=== PATIENT | female | born 1955 | race Two or more races ===

== ENCOUNTER 2018-06-21 10:44 | Emergency (ER) | payer OTHER ==
[~2018-06-21] VITALS: Ht 165.1 cm; Wt 565.2 kg
[~2018-06-21 10:44] MED LIST: ASA325 M1; EXFORGE 5-160 M1 TAB; TRILEPTAL600 MG; ULTRACET PO; VYTORIN 10/10 T1 TAB
[2018-06-21] MEDS ORDERED: PLAVIX75 MG (11:19)
[2018-06-21] MEDS ORDERED: EVISTA60 MG (11:20)
[2018-06-21] MEDS ORDERED: OSEL75CA PO (16:13)
[2018-06-21] MEDS ORDERED: TUSSI PRES-B L120 M1 PO (16:13)
[2018-06-21] MEDS ORDERED: INTESTINEX680 M1 PO (16:16)
== END 2018-06-21 17:28 | disposition home or self-care (01) ==
LOC: ER 10:44
DX: A08.8 Other specified intestinal infections (principal)

== ENCOUNTER 2018-11-18 11:36 | Outpatient (CLI) | payer OTHER ==
[~2018-11-18 11:36] MED LIST changes: +EVISTA60 MG; +INTESTINEX680 M1 PO; +OSEL75CA PO; +PLAVIX75 MG; +TUSSI PRES-B L120 M1 PO
== END 2018-11-18 11:44 | disposition home or self-care (01) ==
LOC: RAD 501 11:36
DX: M54.6 Pain in thoracic spine (principal); M54.5 Low back pain

== ENCOUNTER 2018-12-30 09:21 | Emergency (ER) | payer OTHER ==
[~2018-12-30] VITALS: Ht 167.6 cm; Wt 109.8 kg
[2018-12-30] MEDS ORDERED: LOTREL 5-10 MG1 CAP (10:09)
[2018-12-30] MEDS ORDERED: KETO10TA2 PO (14:47)
[2018-12-30] MEDS ORDERED: RELPAX20 MG PO (14:47)
== END 2018-12-30 14:57 | disposition home or self-care (01) ==
LOC: ER 09:21
DX: G43.909 Migraine, unspecified, not intractable, without status migrainosus (principal)

== ENCOUNTER 2020-03-07 14:33 | Emergency (ER) | payer OTHER ==
[~2020-03-07] VITALS: Ht 167.6 cm; Wt 104.3 kg
[~2020-03-07 14:33] MED LIST changes: +KETO10TA2 PO; +LOTREL 5-10 MG1 CAP; +RELPAX20 MG PO
[2020-03-07] MEDS ORDERED: VITAMIN D31250 MCG PO (14:44)
[2020-03-07] MEDS ORDERED: CLOPIDOGREL BIS75 MG PO (14:44)
[2020-03-07] MEDS ORDERED: VYTORIN 10-201 EACH PO (14:45)
[2020-03-07] MEDS ORDERED: RALOXIFENE HCL60 MG PO (14:45)
[2020-03-07] MEDS ORDERED: AMLODIPINE-BEN1 EAC2 PO (14:45)
[2020-03-07] MEDS ORDERED: LORAZEPAM0.5 MG PO (14:45)
[2020-03-07] MEDS ORDERED: BUPROPION HCL150 M1 PO (14:45)
== END 2020-03-07 17:44 | disposition home or self-care (01) ==
LOC: ER 14:33
DX: G89.11 Acute pain due to trauma (principal); M25.512 Pain in left shoulder

== ENCOUNTER 2020-03-26 12:36 | Outpatient (CLI) | payer OTHER ==
[~2020-03-26 12:36] MED LIST changes: +AMLODIPINE-BEN1 EAC2 PO; +BUPROPION HCL150 M1 PO; +CLOPIDOGREL BIS75 MG PO; +LORAZEPAM0.5 MG PO; +RALOXIFENE HCL60 MG PO; +VITAMIN D31250 MCG PO; +VYTORIN 10-201 EACH PO
== END 2020-03-26 12:53 | disposition home or self-care (01) ==
LOC: MRI 12:36
PROVIDERS: ATTEND Orthopaedic Surgery
DX: M25.512 Pain in left shoulder (principal)
CPT/HCPCS: 73218

== ENCOUNTER 2020-04-10 10:51 | Outpatient (CLI) | payer OTHER | END 2020-04-10 11:06 | disposition home or self-care (01) | LOC: RAD 10:51 | PROVIDERS: ATTEND Orthopaedic Surgery | DX: R07.89 Other chest pain (principal) ==

== ENCOUNTER 2025-01-18 14:43 | Inpatient (IN) | payer OTHER ==
[~2025-01-18] VITALS: Ht 165.1 cm; Wt 106.6 kg
[2025-01-18] MEDS ORDERED: SYNTHROID50 MCG PO (15:37)
--- NOTE | 2025-01-18 15:40 | NUR ---
SE RECIBE PTE ALERTA, ORIENTADA X3 Y AMBULANDO. PTE REFIERE TOS SECA Y ASMA HACE DOS ORO, REFIERE DOLOR DE PECHO Y SE REALIZA EKG EL CUAL SE PRESENTA A DR. MARSHALL E INDICA UBICAR EN AU. SE MIDEN S/V Y SE UBICA.
[2025-01-18] MEDS ORDERED: IPRATROPIUM BROMIDE 0.5 MG/2.5 ML AMPUL.NEB IH SCH ×2 (16:15→21:25)
[2025-01-18] MEDS ORDERED: GUAIFENESIN/DEXTROMETHORPHAN 100MG/10ML BLIST.PACK PO ONE (16:15)
[2025-01-18] MEDS ORDERED: METHYLPREDNISOLONE SOD SUCC 125 MG VIAL IV ONE (16:15)
[2025-01-18] MEDS ORDERED: 0.9 % SODIUM CHLORIDE 500 ML IV ONE (16:15)
[2025-01-18] MEDS ORDERED: LEVALBUTEROL HCL 1.25 MG/3 ML SOLUTION IH SCH ×2 (16:15→21:25)
[2025-01-18 16:49] LABS: BASO % 0.5 % (0.1-1.2); EOS # 0.36 (0.04-0.54); EOS % 2.7 % (0.7-7.0); LYMPH # 3.00 (1.18-3.74); LYMPH % 22.7 % (19.3-53.1); MEAN PLATELET VOLUME 10.30 fl (9.4-12.4); MONO # 1.24 (0.24-0.82); MONO % 9.4 % (4.7-12.5); NEUT # 8.47 (1.56-6.13); NEUT % 63.9 % (34.0-71.1); RED CELL DISTRIBUTION WIDTH 14.2 % (11.6-14.4)
--- NOTE | 2025-01-18 16:58 | NUR ---
SE EDUCA A PTE SOBRE TX MEDICO, SE DEZ MUESTRAS DE LABORATORIO UTILIZANDO MEDIDAS ASEPTICAS. SE COLOCA H/L ANDREA DE EDEMA. SE ADMINISTRAN MEDICAMENTOS DANA ORDEN MEDICA. SE NOTIFICAN RX Y ABGS/TERAPIAS PENDIENTES.
[2025-01-18 17:03] LABS: INR 1.01
[2025-01-18 17:10] LABS: GLUCOSE FASTING 118.0 mg/dL (65-100); OSMOLALITY SERUM 283.0 MOSM/KG (275-295)
[2025-01-18 17:10] LABS: URINE APPEARANCE Clear; URINE BILIRRUBIN Negative (NEGATIVE); URINE BLOOD Negative; URINE COLOR Dark Yellow; URINE GLUCOSE Negative (NEGATIVE); URINE KETONE Trace (NEGATIVE); URINE LEUKOCYTE Trace; URINE NITRATE Negative; URINE PROTEIN Trace (NEGATIVE); URINE UROBILINOGEN 1.0 E.U./dl
[2025-01-18 17:14] LABS: ALT/SGPT 32.0 U/L (12-78); AST/SGOT 27.0 U/L (15-37); BILIRUBIN TOTAL 0.17 mg/dL (0.3-1.2); BUN CREA RATIO 19.0 (7.0-25.0); CREATININE SERUM 0.77 mg/dL (0.55-1.02); GFR 74.55; GLOBULINA 4.4 G/DL (2.4-3.5)
[2025-01-18 17:14] LABS: URINE BACTERIA 45.5 uL (0.0-1933); URINE EPITHELIAL CELLS 8.1 uL (0.0-38.8); URINE RBC 11.5 uL (0.0-20.8); URINE WBC 4.9 uL (0.0-23.2)
[2025-01-18 17:17] LABS: URINE CAST 0.00 uL (0.0-1.40)
[2025-01-18 17:20] LABS: COVID-19 AG NEGATIVE (NEGATIVE)
[2025-01-18 17:54] LABS: ABG PH 7.421 (7.35-7.45); ABG PO2 77.8 mmHg (80-100); BICARBONATE 21.0 mmol/l (23-25)
--- NOTE | 2025-01-18 17:58 | NUR ---
SE NOTIFICA ESTUDIO DE CT PENDIENTE A REALIZAR.
[2025-01-18 18:42] LABS: o2 21 %
[2025-01-18] MEDS ORDERED: AZITHROMYCIN 500 MG VIAL IV ONE (20:45)
[2025-01-18] MEDS ORDERED: CEFTRIAXONE SODIUM 2,000 MG VIAL IV ONE (20:45)
[2025-01-18] MEDS ORDERED: GUAIFEN/DEXTROMETHORPHAN/PE 10 ML BLIST.PACK PO SCH (21:28)
[2025-01-18] MEDS ORDERED: ACETAMINOPHEN 500 MG GEL..CAP PO PRN (21:30)
[2025-01-18] MEDS ORDERED: 0.9 % SODIUM CHLORIDE 1,000 ML IV SCH (21:30)
[2025-01-19] MEDS ORDERED: METHYLPREDNISOLONE SOD SUCC 40 MG VIAL IV SCH (01:00)
[2025-01-19 01:09] VITALS: BP 141/85; O2SAT 95
[2025-01-19 03:27] VITALS: BP 159/80; O2SAT 93
[2025-01-19] MEDS ORDERED: LEVOTHYROXINE SODIUM 50 MCG TABLET PO SCH (06:00)
[2025-01-19 08:00] VITALS: BP 158/73; O2SAT 96
[2025-01-19] MEDS ORDERED: CEFTRIAXONE SODIUM 2,000 MG in 0.9 % SODIUM CHLORIDE 100 ML IV SCH (09:00)
[2025-01-19] MEDS ORDERED: ROSUVASTATIN CALCIUM 20 MG TABLET PO SCH (09:00)
[2025-01-19] MEDS ORDERED: AMLODIPINE BESYLATE 5 MG TABLET PO SCH (09:00)
[2025-01-19] MEDS ORDERED: CLOPIDOGREL BISULFATE 75 MG TABLET PO SCH (09:00)
[2025-01-19] MEDS ORDERED: AZITHROMYCIN 500 MG in DEXTROSE 5 % IN WATER 250 ML IV SCH (09:00)
[2025-01-19 18:27] VITALS: BP 122/66; O2SAT 94
[2025-01-20 02:25] VITALS: BP 116/54; O2SAT 94
[2025-01-20 07:00] VITALS: BP 138/70; O2SAT 97
[2025-01-20 07:08] LABS: BASO % 0.2 % (0.1-1.2); EOS # 0.00 (0.04-0.54); EOS % 0.0 % (0.7-7.0); LYMPH # 2.38 (1.18-3.74); LYMPH % 15.0 % (19.3-53.1); MEAN PLATELET VOLUME 10.70 fl (9.4-12.4); MONO # 0.67 (0.24-0.82); MONO % 4.2 % (4.7-12.5); NEUT # 12.54 (1.56-6.13); NEUT % 79.3 % (34.0-71.1); RED CELL DISTRIBUTION WIDTH 14.5 % (11.6-14.4)
[2025-01-20 07:51] LABS: ALT/SGPT 28.0 U/L (12-78); AST/SGOT 17.0 U/L (15-37); BILIRUBIN TOTAL 0.15 mg/dL (0.3-1.2); BUN CREA RATIO 16.0 (7.0-25.0); CREATININE SERUM 0.64 mg/dL (0.55-1.02); GFR 92.28; GLOBULINA 3.8 G/DL (2.4-3.5); GLUCOSE FASTING 178.0 mg/dL (65-100); LDH 236.0 U/L (84-246); OSMOLALITY SERUM 288.0 MOSM/KG (275-295)
[2025-01-20 08:48] LABS: MYCOPLASMA PNEUMONIAE IGM NON REACTIVE (NO REACTIVE)
[2025-01-20 15:40] VITALS: BP 136/62; O2SAT 95
[2025-01-20] MEDS ORDERED: CEFEPIME HCL 2,000 MG VIAL IV SCH (21:00)
[2025-01-21 00:58] VITALS: BP 119/73; O2SAT 100
[2025-01-21 08:00] VITALS: BP 124/68; O2SAT 94
[2025-01-21 16:00] VITALS: BP 160/67; O2SAT 96
[2025-01-22 01:15] VITALS: BP 135/72; O2SAT 97
[2025-01-22 10:25] VITALS: BP 167/78; O2SAT 96
[2025-01-22 15:13] LABS: BASO % 0.3 % (0.1-1.2); EOS # 0.00 (0.04-0.54); EOS % 0.0 % (0.7-7.0); LYMPH # 2.20 (1.18-3.74); LYMPH % 12.2 % (19.3-53.1); MEAN PLATELET VOLUME 11.40 fl (9.4-12.4); MONO # 0.95 (0.24-0.82); MONO % 5.3 % (4.7-12.5); NEUT # 14.36 (1.56-6.13); NEUT % 80.0 % (34.0-71.1); RED CELL DISTRIBUTION WIDTH 14.3 % (11.6-14.4)
[2025-01-22 16:00] VITALS: BP 170/82; O2SAT 96
[2025-01-22 20:00] VITALS: BP 150/73; O2SAT 98
[2025-01-23 01:25] VITALS: BP 145/61; O2SAT 93
[2025-01-23 08:00] VITALS: BP 161/79; O2SAT 95
[2025-01-23 16:00] VITALS: BP 166/83; O2SAT 97
[2025-01-23] MEDS ORDERED: PREDNISONE 10 MG TABLET PO NR (17:00)
[2025-01-23] MEDS ORDERED: METHYLPREDNISOLONE SOD SUCC 40 MG VIAL IV SCH (17:00)
[2025-01-24 01:32] VITALS: BP 144/69; O2SAT 96
[2025-01-24] MEDS ORDERED: PREDNISONE 10 MG TABLET PO SCH (09:00)
== END 2025-01-24 14:19 | disposition home or self-care (01) | DRG 194 ==
LOC: ER 17:18 → SEC-K 21:57 → SURH 21:57
PROVIDERS: Emergency Medicine Pediatric Emergency Medicine; General Practice; Internal Medicine Infectious Disease; ADMIT Internal Medicine; ATTEND Internal Medicine
PROC: BB24ZZZ Computerized Tomography (CT Scan) of Bilateral Lungs (ICD-10-PCS; principal; 2025-01-18)
PROC: 3E0F7GC Introduction of Other Therapeutic Substance into Respiratory Tract, Via Natural or Artificial Opening (ICD-10-PCS; 2025-01-19)
DX: J18.9 Pneumonia, unspecified organism (principal); J45.901 Unspecified asthma with (acute) exacerbation; J84.89 Other specified interstitial pulmonary diseases; I11.9 Hypertensive heart disease without heart failure; I25.10 Atherosclerotic heart disease of native coronary artery without angina pectoris; E03.9 Hypothyroidism, unspecified; E78.5 Hyperlipidemia, unspecified; Z87.891 Personal history of nicotine dependence